=== PATIENT | male | born 1960 | race Caucasian/White ===

== ENCOUNTER 2017-02-13 07:08 | Emergency (ER) | payer BC ==
[~2017-02-13] VITALS: Ht 193 cm; Wt 122.2 kg
[2017-02-13] MEDS ORDERED: NAPROSYN500 MG PO (10:02)
[2017-02-13] MEDS ORDERED: FLEXERIL10 MG PO (10:02)
[2017-02-13] MEDS ORDERED: LIDODERM 5% P1 PATCH TD (10:02)
[2017-02-13] MEDS ORDERED: LORTAB 5-325 M1 EACH PO (10:02)
[2017-02-13 10:46] VITALS: BP 123/83
== END 2017-02-13 10:47 | disposition home or self-care (01) ==
LOC: EME 07:08
DX: S29.012A Strain of muscle and tendon of back wall of thorax, initial encounter (principal); M62.830 Muscle spasm of back; W01.0XXA Fall on same level from slipping, tripping and stumbling without subsequent striking against object, initial encounter; Z85.72 Personal history of non-Hodgkin lymphomas; Z87.891 Personal history of nicotine dependence
CPT/HCPCS: 99281; 99284; J1885